=== PATIENT | male | born 1955 | race Caucasian/White ===

== ENCOUNTER 2018-08-11 09:39 | Emergency (ER) | payer MEDICARE ==
[2018-08-11 09:51] VITALS: BP 147/73
[2018-08-11] MEDS ORDERED: BUFFERED LIDOCAINE 10 ML SYRINGE SUBQ STA (10:34)
--- NOTE | 2018-08-11 10:37 | ED Physician Documentation ---
PD HPI UPPER EXT INJURY - Stated complaint Stated Complaint: R INDEX FINGER LAC - Chief complaint Chief Complaint: Ext Problem - History obtained from History obtained from: Patient, Family - History of Present Illness Location: Right, Finger (index) Type of injury: Laceration Where injury occurred: Home Timing - onset: Today Timing - duration: Minutes Timing - details: Abrupt onset, Still present Improved by: Rest Worsened by: Moving, Palpating Contributing factors: No: Anticoagulated Similar symptoms before: Diagnosis (laceration) Recently seen: Not recently seen - Additonal information Additional information: 63-year-old male was chopping wood with a mall when his hand slipped and struck the edge of the wood he was cutting and flipped back a piece of skin on the index finger. Review of Systems Constitutional: denies: Fever Respiratory: denies: Cough GI: denies: Vomiting Skin: reports: Laceration (s) Musculoskeletal: reports: Extremity pain. denies: Neck pain, Back pain Neurologic: denies: Generalized weakness, Focal weakness, Numbness PD PAST MEDICAL HISTORY - Past Medical History Past Medical History: Yes - Past Surgical History Past Surgical History: No - Present Medications Home Medications: Ambulatory Orders Medication Instructions Recorded Confirmed Albuterol Sulfate [Proair Hfa 1 - 2 puffs INH Q4H PRN 08/11/18 08/11/18 Inhaler] Amlodipine Besylate 10 mg PO 08/11/18 Aspirin [Aspirin EC] 81 mg PO 08/11/18 08/11/18 Atorvastatin Calcium 08/11/18 B12/Levomefolate Calcium/B-6 08/11/18 [Foltx Tablet] Beclomethasone Dipropionate [Qnasl 4.9 gm NS 08/11/18 Children] Chlorthalidone 50 mg PO 08/11/18 Escitalopram [Lexapro] 10 mg PO DAILY 08/11/18 08/11/18 Lisinopril 40 mg PO 08/11/18 Multivitamin [Multiple Vitamins] 08/11/18 08/11/18 Niacin (Inositol Niacinate) 08/11/18 [Niacin 500 mg Capsule] [place]-3/Dha/Epa/Fish Oil [Fish Oil 08/11/18 1,000 mg Softgel] raNITIdine [Zantac] 150 mg PO DAILY 08/11/18 08/11/18 - Allergies Allergies/Adverse Reactions: Allergies Allergy/AdvReac Type Severity Reaction Status Date / Time No Known Drug Allergies Allergy Verified 08/11/18 09:49 - Social History Does the pt smoke?: No Smoking Status: Never smoker Does the pt drink ETOH?: No - Immunizations Immunizations are current?: No Immunizations: TDAP >10years/unknown PD ED PE NORMAL - Vitals Vital signs reviewed: Yes (hypertensive ) - General General: Alert and oriented X 3, No acute distress, Well developed/nourished - HEENT HEENT: Atraumatic, PERRL, EOMI - Respiratory Respiratory: No respiratory distress - Derm Derm: Normal color, Warm and dry, No rash - Extremities Extremities: No deformity, No edema, Other (There is a 3.5cm flap laceration to the right index finger over the proximal dorsal phlange ) - Neuro Neuro: Alert and oriented X 3, 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 2-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, No motor deficit, No sensory deficit, Normal speech Eye Opening: Spontaneous Motor: Obeys Commands Verbal: Oriented GCS Score: 15 - Psych Psych: Normal mood, Normal affect Results - Vitals Vitals: Vital Signs - 24 hr 08/11/18 09:45 Temperature 35.8 C L Heart Rate 57 L Respiratory 16 Rate Blood Pressure 147/73 H O2 Saturation 98 Oxygen O2 Source Room air Procedures - Laceration (location) right index Length in cm: 3.5 Wound type: Flap, Clean Neurovascular status: Sensory intact, Motor intact, Vascular intact Tendon involvement: Tendon intact Anesthesia: Lidocaine 1%, With bicarb Wound Preparation: Hibiclens, Irrigated copiously NS, Wound explored, To the base Skin layer closure: Nylon, Interrupted, Size #-0 - enter number (4-0), Sutures - enter # (7) Other: Patient tolerated well, No complications, Neurovascular intact, Dressing applied, Tetanus booster given Complexity: Simple PD MEDICAL DECISION MAKING - ED course Complexity details: considered differential, d/w patient, d/w family ED course: 63-year-old male with a flap laceration of the index finger is sutured he will need suture removal in 10-14 days. - Sepsis Event Vital Signs: Vital Signs - 24 hr 08/11/18 09:45 Temperature 35.8 C L Heart Rate 57 L Respiratory 16 Rate Blood Pressure 147/73 H O2 Saturation 98 Oxygen O2 Source Room air Departure - Departure Disposition: 01 Home, Self Care Clinical Impression: Laceration of index finger Qualifiers: Encounter type: initial encounter Damage to nail status: without damage Foreign body presence: without foreign body Laterality: right Qualified Code(s): S61.210A - Laceration without foreign body of right index finger without damage to nail, initial encounter Instructions: ED Laceration Hand Follow-Up: Naeem Cardona MD [Primary Care Provider] - Comments: Sutures will need to be removed in 10-14 days.
[2018-08-11] MEDS ORDERED: TETANUS/DIPHTHERIA/PERTUSSIS 0.5 ML SYRINGE IM ONE (11:08)
== END 2018-08-11 11:28 | disposition home or self-care (01) ==
LOC: ED 09:39
DX: S61.210A Laceration without foreign body of right index finger without damage to nail, initial encounter (principal); W22.8XXA Striking against or struck by other objects, initial encounter; Y92.009 Unspecified place in unspecified non-institutional (private) residence as the place of occurrence of the external cause; Z23 Encounter for immunization
CPT/HCPCS: 12002; 90471; 99282